=== PATIENT | male | born 1970 | race Caucasian/White ===

== ENCOUNTER 2023-01-21 17:02 | Emergency (ER) | payer BC ==
[2023-01-21] MEDS ORDERED: Morphine 4 MG/ML VIAL ONE (17:59)
== END 2023-01-21 18:25 | disposition home or self-care (01) ==
LOC: CSHERS 17:02
DX: S22.32XA Fracture of one rib, left side, initial encounter for closed fracture (principal); E78.5 Hyperlipidemia, unspecified; I10 Essential (primary) hypertension; W01.0XXA Fall on same level from slipping, tripping and stumbling without subsequent striking against object, initial encounter
CPT/HCPCS: 71046; 96372; J2270